=== PATIENT | male | born 1995 | race Caucasian/White ===

== ENCOUNTER 2017-02-17 18:01 | Emergency (ER) | payer BC ==
[2017-02-17 18:50] VITALS: BP 145/75
--- NOTE | 2017-02-17 19:33 | UC ---
Tyree Block Nikita, scribed for Brandon Peralta MD on 02/17/17 at 1911 . Upper Extremity HPI - History of Current Complaint Chief Complaint: UCUpperExtremity Stated Complaint: ARM INJURY Time Seen by Provider: 02/17/17 18:59 Hx Obtained From: Patient Onset/Duration: Sudden Onset, Lasting Days, Still Present Severity Initially: Moderate Severity Currently: Moderate Pain Intensity: 6 Pain Scale Used: 0-10 Numeric Location Of Pain: Is Discrete @ - L forearm Aggravating Factor(s): Movement Alleviating Factor(s): Nothing Associated Signs And Symptoms: Positive: Other - Pt reports the L forearm is stiff and swollen. Patient denies recent injury, pain in the L elbow, pain in the fingers in the L hand. - Allergies/Home Medications Allergies/Adverse Reactions: Allergies Allergy/AdvReac Type Severity Reaction Status Date / Time No Known Allergies Allergy Verified 02/17/17 18:50 PMH/Surg Hx/FS Hx/Imm Hx - Additional Past Medical History Additional PMH: Collar bone fracture Cardiovascular History: Other Other Cardiovascular History: No CAD - Surgical History Surgical History: None - Family History Known Family History: Negative: Cardiac Disease, Hypertension, Diabetes - Social History Alcohol Use: None Substance Use Type: None Smoking Status (MU): Never Smoked Tobacco - Immunization History Vaccination Up to Date: Yes Review of Systems Constitutional: Other - no fever Musculoskeletal: Other: - Pt reports the L forearm is painful, stiff, and swollen. Patient denies recent injury, pain in the L elbow, pain in the fingers in the L hand. All Other Systems Reviewed And Are Negative: Yes Physical Exam Triage Information Reviewed: Yes Appearance: Well-Appearing, No Pain Distress Vital Signs: Initial Vital Signs Temp 98.6 F 02/17/17 18:48 Pulse 74 02/17/17 18:48 Resp 16 02/17/17 18:48 BP 145/75 02/17/17 18:48 Pulse Ox 96 02/17/17 18:48 Vital Signs Reviewed: Yes Eye Exam: Normal ENT Exam: Normal Neck: Positive: Supple, Nontender Respiratory: Positive: Lungs clear, Normal breath sounds Cardiovascular: Positive: RRR Abdomen Description: Positive: Nontender, Soft Bowel Sounds: Positive: Present Musculoskeletal Exam: Other - L forearm is tender over lateral aspect, Mildly warm to touch, Pain with any ROM of the fingers and wrist, Worst pain occurs with ulnar flexion of the wrist Neurological Exam: Normal Neurological: Positive: Alert Psychological: Positive: Other: - affect/mood appropriat Skin Exam: Other - warm, color reflects adequate perfusion, dry Upper Extremity Course/Dx - Course Course Of Treatment: This patient is a 22 year old M presenting to [facility] with a chief complaint of L forearm pain since 2 days ago. The CC is described as starting from the wrist and up the forearm and increasingly painful since onset. The patient rates the pain 6/10 in severity. Symptoms aggravated by moving the wrist up and down, and side to side. Symptoms alleviated by nothing. Pt reports the L forearm is stiff and swollen. Patient denies recent injury, pain in the L elbow, pain in the fingers in the L hand. Pt works on a farm. Medications reviewed. In the course, pt was given a splint. Pt will be discharged. Pt is agreeable with this plan. - Differential Dx/Diagnosis Provider Diagnoses: LEFT FOREARM TENDONITIS Discharge - Discharge Plan Condition: Stable Disposition: HOME Patient Education Materials: Tendinitis (ED) Referrals: VICKEY Tolbert [Primary Care Provider] - Additional Instructions: FOLLOW UP WITH YOUR DOCTOR. PROTECT, ICE AND ELEVATE YOUR LEFT ARM. TAKE IBUPROFEN 600MG EVERY 6 HOURS NEEDED. GET RECHECKED FOR ANY WORSENING OF YOUR CONDITION OR QUESTIONS OR CONCERNS. The documentation as recorded by the Tyree matute Nikita accurately reflects the service I personally performed and the decisions made by me, Brandon Peralta MD.
== END 2017-02-17 19:20 | disposition home or self-care (01) ==
LOC: UCEAST 18:01
DX: M79.632 Pain in left forearm (principal); M77.9 Enthesopathy, unspecified
CPT/HCPCS: 99212; G0463

== ENCOUNTER 2017-06-04 20:10 | Emergency (ER) | payer BC ==
[2017-06-04 20:19] VITALS: BP 152/85
[2017-06-04] MEDS ORDERED: Tetan/Diph/Pertus SYR(Tdap)* 0.5 ML SYR(BOOSTRIX) use SYR IM ONE (21:51)
[2017-06-04] MEDS ORDERED: Lidocaine 1% MPF* 2 ML VIAL INJ ONE (22:32)
--- NOTE | 2017-06-04 22:53 | UC ---
Laceration HPI - HPI Summary HPI Summary: 22 yo WM c/o right 5th knuckle laceration with a knife while at work. Does not recall last tdap - History Of Current Complaint Chief Complaint: UCLaceration Stated Complaint: HAND LAC Mechanism Of Injury: Sharp Trauma Onset/Duration: Sudden Onset Pain Intensity: 4 - Allergies/Home Medications Allergies/Adverse Reactions: Allergies Allergy/AdvReac Type Severity Reaction Status Date / Time No Known Allergies Allergy Verified 06/04/17 20:20 PMH/Surg Hx/FS Hx/Imm Hx - Surgical History Surgical History: None - Family History Known Family History: Negative: Cardiac Disease, Hypertension, Diabetes - Social History Alcohol Use: None Substance Use Type: None Smoking Status (MU): Never Smoked Tobacco - Immunization History Most Recent Tetanus Shot: unknown Vaccination Up to Date: Yes Review of Systems Constitutional: Negative Skin: Other - right hand laceration Eyes: Negative ENT: Negative Respiratory: Negative Cardiovascular: Negative Gastrointestinal: Negative Genitourinary: Negative Motor: Negative Neurovascular: Negative Musculoskeletal: Negative Neurological: Negative Psychological: Negative Is Patient Immunocompromised?: No All Other Systems Reviewed And Are Negative: Yes Physical Exam Triage Information Reviewed: Yes Completion Of Physical Exam Limited Due To: Altered Mental Status Appearance: Well-Appearing Vital Signs: Initial Vital Signs Temp 36.3 C 06/04/17 20:17 Pulse 61 06/04/17 20:17 Resp 18 06/04/17 20:17 BP 152/85 06/04/17 20:17 Pulse Ox 100 06/04/17 20:17 Vital Signs Reviewed: Yes Eye Exam: Normal ENT Exam: Normal Dental Exam: Normal Neck exam: Normal Neck: Positive: 1 Respiratory Exam: Normal Cardiovascular Exam: Normal Abdominal Exam: Normal Musculoskeletal Exam: Normal Neurological Exam: Normal Psychological Exam: Normal Skin: Positive: Other - 2cm superficial laceration over right 5th MCP, bleeding stopped Laceration Repair - Laceration Repair 1 Laceration Size After Repair: Length (cm) - 2 Type Injection: Local Anesthesia Used: 1.0% Lido Cleansing Completed Via Routine Prep: Yes Irrigation With Pressure Irrigation Device: No Closure Material: Sutures Closure Method: Single Layer Suture Type: Other - ethilon Laceration Course/Dx - Differential Dx - Laceration/Wound Provider Diagnoses: Right hand laceration. Elevated BP due to acute pain Discharge - Discharge Plan Condition: Stable Disposition: HOME Patient Education Materials: Laceration (ED), Care For Your Stitches (ED) Referrals: No Primary Care Phys,NOPCP [Primary Care Provider] - Additional Instructions: Return to urgent care for wound check in 2 days
== END 2017-06-04 23:16 | disposition home or self-care (01) ==
LOC: UCEAST 20:10
DX: S61.411A Laceration without foreign body of right hand, initial encounter (principal); W26.0XXA Contact with knife, initial encounter; Y93.9 Activity, unspecified; Y92.89 Other specified places as the place of occurrence of the external cause; Y99.0 Civilian activity done for income or pay; R03.0 Elevated blood-pressure reading, without diagnosis of hypertension
CPT/HCPCS: 12001; 90471; 90715; 99211; G0463

== ENCOUNTER 2017-07-19 09:10 | Emergency (ER) | payer BC ==
[2017-07-19 09:33] VITALS: BP 107/73
--- NOTE | 2017-07-19 09:52 | UC ---
Throat Pain/Nasal Javid HPI - HPI Summary HPI Summary: SORE THROAT X 4 DAYS NO COUGH , NO NASAL CONGESTION NO FEVER, + CHILLS - History of Current Complaint Chief Complaint: UCGeneralIllness Stated Complaint: SORE THROAT Time Seen by Provider: 07/19/17 09:17 Hx Obtained From: Patient Onset/Duration: Gradual Onset, Lasting Days - 4, Still Present Severity: Moderate Pain Intensity: 7 Cough: None Associated Signs & Symptoms: Negative: Dysphagia, FB Sensation, Drooling, Wheezing, Hoarseness, Sinus Discomfort, Nasal Discharge, Fever, Vomiting, Rash - Allergies/Home Medications Allergies/Adverse Reactions: Allergies Allergy/AdvReac Type Severity Reaction Status Date / Time No Known Allergies Allergy Verified 07/19/17 09:30 PMH/Surg Hx/FS Hx/Imm Hx Previously Healthy: Yes - Surgical History Surgical History: None - Family History Known Family History: Negative: Cardiac Disease, Hypertension, Diabetes - Social History Alcohol Use: None Substance Use Type: None Smoking Status (MU): Never Smoked Tobacco - Immunization History Most Recent Tetanus Shot: unknown Vaccination Up to Date: Yes Review of Systems Constitutional: Negative Skin: Negative Eyes: Negative ENT: Sore Throat Respiratory: Negative Cardiovascular: Negative Is Patient Immunocompromised?: No All Other Systems Reviewed And Are Negative: Yes Physical Exam Triage Information Reviewed: Yes Appearance: Well-Appearing, No Pain Distress, Well-Nourished Vital Signs: Initial Vital Signs Temp 99.1 F 07/19/17 09:30 Pulse 105 07/19/17 09:30 Resp 16 07/19/17 09:30 BP 107/73 07/19/17 09:30 Pulse Ox 97 07/19/17 09:30 Vital Signs Reviewed: Yes Eyes: Positive: Conjunctiva Clear ENT: Positive: Normal ENT inspection, Hearing grossly normal, Pharyngeal erythema, Tonsillar swelling. Negative: Nasal congestion, Nasal drainage, Tonsillar exudate Neck exam: Normal Neck: Positive: Supple, Tenderness @, Enlarged Nodes @ Respiratory: Positive: Chest non-tender, Lungs clear, Normal breath sounds, No respiratory distress Cardiovascular: Positive: Tachycardia Abdominal Exam: Normal Abdomen Description: Positive: Nontender, No Organomegaly Skin Exam: Normal Throat Pain/Nasal Course/Dx - Differential Dx/Diagnosis Provider Diagnoses: STREP PHARYNGITIS Discharge - Sign-Out/Discharge Documenting (check all that apply): Discharge - Discharge Plan Condition: Stable Disposition: HOME Prescriptions: Amoxicillin PO (*) [Amoxicillin 875 MG (*)] 875 mg PO BID #20 tab Patient Education Materials: Strep Throat (ED) Referrals: VICKEY Tolbert [Primary Care Provider] - If Needed - Billing Disposition and Condition Condition: STABLE Disposition: HOME
== END 2017-07-19 09:56 | disposition home or self-care (01) ==
LOC: UCCORT 09:10
DX: J02.0 Streptococcal pharyngitis (principal)
CPT/HCPCS: 87651; 99212; G0463